=== PATIENT | female | born 1960 | race Caucasian/White ===

== ENCOUNTER 2019-02-08 14:43 | Emergency (ER) | payer BC, OTHER ==
[2019-02-08] MEDS ORDERED: Lidocaine 1% 10 ML MDV INJECT ONE (15:15)
--- NOTE | 2019-02-08 15:15 | EDM.PDOC ---
ED HPI GENERAL MEDICAL PROBLEM - General Chief Complaint: Laceration Stated Complaint: LACERATION TO LFT THUMB Time Seen by Provider: 02/08/19 15:15 Source of Information: Reports: Patient History Limitations: Reports: No Limitations - History of Present Illness INITIAL COMMENTS - FREE TEXT/NARRATIVE: HISTORY AND PHYSICAL: History of present illness: Patient is a 59-year-old female presents to the ED with complaint of laceration to her left hand. She states she cut her hand while cutting a ham this afternoon. She is not UTD on tetanus. Review of systems: As per history of present illness and below otherwise all systems reviewed and negative. Past medical history: As per history of present illness and as reviewed below otherwise noncontributory. Surgical history: As per history of present illness and as reviewed below otherwise noncontributory. Social history: No reported history of drug or alcohol abuse. Family history: As per history of present illness and as reviewed below otherwise noncontributory. Physical exam: General: Patient sitting comfortably in no acute distress and nontoxic appearing HEENT: Atraumatic, normocephalic, pupils reactive, negative for conjunctival pallor or scleral icterus, mucous membranes moist, throat clear, neck supple, nontender, trachea midline. No meningeal signs. Lungs: Clear to auscultation, breath sounds equal bilaterally, chest nontender. Heart: S1S2, regular, negative for clicks, rubs, or overt murmur. Abdomen: Soft, nondistended, nontender. Negative for masses or hepatosplenomegaly. Negative for costovertebral tenderness. No rigidity, rebound , guarding. Pelvis: Stable nontender. Genitourinary: Deferred. Rectal: Deferred. Extremities: 1cm laceration to the web space between the 4th and 5th left digits and a 2cm laceration to the distal left thumb. negative for cords or calf pain. Neurovascular unremarkable. Neuro: Awake, alert, oriented. Cranial nerves II through XII unremarkable. Cerebellum unremarkable. Motor and sensory unremarkable throughout. Exam nonfocal. Notes: Diagnostics: none Therapeutics: tdap laceration repair - see procedure note Prescriptions: Impression: Laceration Definitive disposition and diagnosis as appropriate pending reevaluation and review of above. Left Finger-Thumb Pain Score (Numeric/FACES): 2 - Related Data Allergies Allergy/AdvReac Type Severity Reaction Status Date / Time latex Allergy Rash Verified 02/08/19 15:01 Home Meds: Home Meds Aspirin [Adult Low Dose Aspirin EC] 81 mg PO DAILY 07/22/14 [History] Levothyroxine [Synthroid] 88 mcg PO DAILY 07/22/14 [History] Losartan/Hydrochlorothiazide [Losartan-HCTZ 50-12.5 MG] 50 mg PO DAILY 07/22/14 [History] Metoprolol Succinate [Toprol XL] 25 mg PO DAILY 07/22/14 [History] Cholecalciferol (Vitamin D3) [Vitamin D3] 5,000 units PO DAILY 09/15/14 [History ] DULoxetine [Cymbalta] 60 mg PO DAILY 09/15/14 [History] Gabapentin [Neurontin] 100 mg PO BID 09/15/14 [History] Loratadine [Claritin] 10 mg PO DAILY 09/15/14 [History] Vitamin B Complex 1 cap PO DAILY 09/15/14 [History] Past Medical History Cardiovascular History: Reports: Hypertension - Infectious Disease History Infectious Disease History: Reports: None - Past Surgical History HEENT Surgical History: Reports: Adenoidectomy, Tonsillectomy Female Surgical History: Reports: Hysterectomy Social & Family History - Family History Family Medical History: Noncontributory - Tobacco Use Smoking Status *Q: Never Smoker - Caffeine Use Caffeine Use: Reports: Coffee - Recreational Drug Use Recreational Drug Use: No ED ROS GENERAL - Review of Systems Review Of Systems: Comprehensive ROS is negative, except as noted in HPI. ED EXAM, SKIN/RASH Exam: See Below (see dictation) ED SKIN PROCEDURES - Laceration/Wound Repair Left Hand Appearance: Superficial, Subcutaneous, Linear, Clean Distal NVT: Neuro & Vascular Intact, No Tendon Injury Anesthetic Type: Local Local Anesthesia - Lidocaine (Xylocaine): 1% Plain Local Anesthetic Volume: 5cc Skin Prep: Saline Saline Irrigation (cc's): 250 Exploration/Debridement/Repair: Wound Explored, In a Bloodless Field, Explored to Base, No Foreign Material Found Closed with: Sutures Lac/Wound length In cm: 2 Suture Size: 5-0 # of Sutures: 8 Suture Type: Nylon, Interrupted, Simple Course - Vital Signs Last Recorded V/S: Last Vital Signs Temp 97.0 F 02/08/19 15:03 Pulse 81 02/08/19 15:03 Resp 16 02/08/19 15:03 BP Pulse Ox 91 L 02/08/19 15:03 - Orders/Labs/Meds Meds: Medications Discontinued Medications Generic Name Dose Route Start Last Admin Trade Name Aliya PALMA Reason Stop Dose Admin Lidocaine HCl 5 ml 02/08/19 15:15 02/08/19 15:25 Xylocaine-Mpf 1% INJECT 02/08/19 15:16 5 ml ONETIME ONE Administration Lidocaine HCl 10 ml 02/08/19 15:15 02/08/19 15:25 Xylocaine 1% INJECT 02/08/19 15:16 Not Given ONETIME ONE Departure - Departure Time of Disposition: 15:48 Disposition: Home, Self-Care 01 Condition: Good Clinical Impression: Laceration of left hand - Discharge Information Referrals: Josiane Avilez DO [Primary Care Provider] - Forms: ED Department Discharge Additional Instructions: The following information is given to patients seen in the emergency department who are being discharged to home. This information is to outline your options for follow-up care. We provide all patients seen in our emergency department with a follow-up referral. The need for follow-up, as well as the timing and circumstances, are variable depending upon the specifics of your emergency department visit. If you don't have a primary care physician on staff, we will provide you with a referral. We always advise you to contact your personal physician following an emergency department visit to inform them of the circumstance of the visit and for follow-up with them and/or the need for any referrals to a consulting specialist. The emergency department will also refer you to a specialist when appropriate. This referral assures that you have the opportunity for follow-up care with a specialist. All of these measure are taken in an effort to provide you with optimal care, which includes your follow-up. Under all circumstances we always encourage you to contact your private physician who remains a resource for coordinating your care. When calling for follow-up care, please make the office aware that this follow-up is from your recent emergency room visit. If for any reason you are refused follow-up, please contact the [facility] Emergency Department at and asked to speak to the emergency department charge nurse. [facility] [address] [place] [id number] [facility] [address] [place] [id number] Keep the area clean and dry as instructed Follow up for suture removal in 7 days Return to ED As needed as discussed Sepsis Event Note - Evaluation Sepsis Screening Result: No Definite Risk - Focused Exam Vital Signs: Vital Signs Temp Pulse Resp Pulse Ox 02/08/19 15:03 97.0 F 81 16 91 L Date Exam was Performed: 02/08/19 Time Exam was Performed: 15:25
[2019-02-08 16:00] VITALS: BP 144/78; PULSE 82
== END 2019-02-08 16:01 | disposition home or self-care (01) ==
LOC: MW.ED 14:43
DX: S61.412A Laceration without foreign body of left hand, initial encounter (principal); Z79.82 Long term (current) use of aspirin; I10 Essential (primary) hypertension; Z79.899 Other long term (current) drug therapy; Z91.040 Latex allergy status; W26.8XXA Contact with other sharp object(s), not elsewhere classified, initial encounter
CPT/HCPCS: 12001; 99282; J2001

== ENCOUNTER 2022-12-18 14:54 | Emergency (ER) | payer OTHER ==
[2022-12-18] MEDS ORDERED: Tenecteplase 50 MG Kit ONE (15:23)
[2022-12-18] MEDS ORDERED: Tenecteplase 50 MG Kit IV STA (15:32)
[2022-12-18 15:46] LABS: BASOPHILS ABSOLUTE AUTO 0.07 K/uL (0.00-0.20); BASOPHILS PERCENT AUTO 0.7 % (0.0-1.0); EOSINOPHILS ABSOLUTE AUTO 0.62 K/uL (0.00-0.45); EOSINOPHILS PERCENT AUTO 6.6 % (0.0-6.0); HEMATOCRIT 41.5 % (37.0-47.0); HEMOGLOBIN 13.7 g/dL (12.0-16.0); IMMATURE GRAN ABSOLUTE AUTO 0.03 K/uL (0.00-0.05); IMMATURE GRAN PERCENT AUTO 0.3 % (0.0-0.4); LYMPHOCYTES ABSOLUTE AUTO 2.72 K/uL (1.00-4.80); LYMPHOCYTES PERCENT AUTO 28.9 % (24.0-44.0); MEAN CORPUSCULAR HEMOGLOBIN 28.2 pg (28.0-32.0); MEAN CORPUSCULAR VOLUME 85.6 fL (83.0-99.0); MONOCYTES ABSOLUTE AUTO 0.62 K/uL (0.00-0.80); MONOCYTES PERCENT AUTO 6.6 % (0.0-8.0); NEUTROPHILS ABSOLUTE AUTO 5.36 K/uL (1.80-7.70); NEUTROPHILS PERCENT AUTO 56.9 % (41.0-71.0); PLATELET COUNT,PLT 256 K/uL (150-400); RED BLOOD CELL COUNT 4.85 M/uL (4.10-5.30); WHITE BLOOD CELL COUNT,WBC 9.42 K/uL (3.9-11.3)
[2022-12-18 15:55] LABS: APPEARANCE,URINE CLEAR; BILIRUBIN,URINE NEGATIVE (NEGATIVE); COLOR,URINE YELLOW; GLUCOSE,URINE NEGATIVE (NEGATIVE); KETONES,URINE NEGATIVE (NEGATIVE); LEUKOCYTE ESTERASE,URINE NEGATIVE (NEGATIVE); NITRITE,URINE NEGATIVE (NEGATIVE); OCCULT BLOOD,URINE NEGATIVE (NEGATIVE); PROTEIN,URINE NEGATIVE (NEGATIVE); UROBILINOGEN,URINE 0.2 EU/dL (<2.0)
[2022-12-18 16:13] LABS: A/G RATIO 0.9 (0.9-1.6); ALBUMIN 3.5 g/dL (3.4-5.0); BILIRUBIN TOTAL 0.2 mg/dL (0.2-1.0); CALCIUM 8.6 mg/dL (8.5-10.1); CARBON DIOXIDE,CO2 29.9 mmol/L (21.0-32.0); CREATININE 0.9 mg/dL (0.6-1.0); EST CRCL DRUG DOSING (CG) 53.61 mL/min; MAGNESIUM 1.9 mg/dL (1.8-2.4); POTASSIUM,K 3.6 mmol/L (3.5-5.1); PROTEIN TOTAL,TP 7.2 g/dL (6.4-8.2)
[2022-12-18 16:20] LABS: INR 0.97 (0.86-1.11)
[2022-12-18] MEDS ORDERED: LORazepam 2 MG/ML SDV IVPUSH ONE (16:30)
[2022-12-18 17:57] VITALS: BP 132/70; PULSE 95
== END 2022-12-18 17:40 ==
LOC: MW.ED 14:54
DX: I67.9 Cerebrovascular disease, unspecified (principal); I10 Essential (primary) hypertension; E03.9 Hypothyroidism, unspecified; Z91.040 Latex allergy status; Z79.899 Other long term (current) drug therapy; Z79.82 Long term (current) use of aspirin
CPT/HCPCS: 36415; 51702; 70450; 70496; 70498; 80053; 81003; 82947; 83735; 84484; 85025; 85610; 85730; 92977; 96374; 99285; J2060; J3101; 93010

== ENCOUNTER 2023-06-21 16:01 | Observation (INO) | payer OTHER ==
[2023-06-21 16:24] LABS: BASOPHILS ABSOLUTE AUTO 0.06 K/uL (0.00-0.20); BASOPHILS PERCENT AUTO 0.5 % (0.0-1.0); EOSINOPHILS ABSOLUTE AUTO 0.51 K/uL (0.00-0.45); EOSINOPHILS PERCENT AUTO 4.6 % (0.0-6.0); HEMATOCRIT 40.9 % (37.0-47.0); HEMOGLOBIN 13.6 g/dL (12.0-16.0); IMMATURE GRAN ABSOLUTE AUTO 0.03 K/uL (0.00-0.05); IMMATURE GRAN PERCENT AUTO 0.3 % (0.0-0.4); LYMPHOCYTES ABSOLUTE AUTO 2.81 K/uL (1.00-4.80); LYMPHOCYTES PERCENT AUTO 25.4 % (24.0-44.0); MEAN CORPUSCULAR HEMOGLOBIN 29.4 pg (28.0-32.0); MEAN CORPUSCULAR HGB CONC 33.3 g/dL (32.0-36.0); MEAN CORPUSCULAR VOLUME 88.5 fL (83.0-99.0); MONOCYTES ABSOLUTE AUTO 0.69 K/uL (0.00-0.80); MONOCYTES PERCENT AUTO 6.2 % (0.0-8.0); NEUTROPHILS ABSOLUTE AUTO 6.97 K/uL (1.80-7.70); PLATELET COUNT,PLT 302 K/uL (150-400); RED BLOOD CELL COUNT 4.62 M/uL (4.10-5.30); WHITE BLOOD CELL COUNT,WBC 11.07 K/uL (3.9-11.3)
[2023-06-21] MEDS: Iopamidol 755 MG/ML 500 ML Multipack Bottle IVPUSH STA (16:40)
[2023-06-21 16:43] LABS: INR 1.01 (0.86-1.11); PTT,PARTIAL THROMBOPLSTIN TIME 27.2 SEC (23.9-30.7)
[2023-06-21] MEDS: Sodium Chloride 0.9% 500 ML IV SCH (16:47)
[2023-06-21] MEDS: Sodium Chloride 0.9% 2.5 ML Syringe FLUSH PRN (16:47)
[2023-06-21] MEDS: Sodium Chloride 0.9% 10 ML Syringe FLUSH PRN (16:47)
[2023-06-21] MEDS: Sodium Chloride 0.9% 20 ML SDV IV PRN (16:48)
[2023-06-21 17:00] LABS: A/G RATIO 0.9 (0.9-1.6); ALBUMIN 3.6 g/dL (3.4-5.0); BILIRUBIN TOTAL 0.3 mg/dL (0.2-1.0); CALCIUM 9.1 mg/dL (8.5-10.1); CARBON DIOXIDE,CO2 30.4 mmol/L (21.0-32.0); EST CRCL DRUG DOSING (CG) 49.72 mL/min; POTASSIUM,K 3.5 mmol/L (3.5-5.1); PROTEIN TOTAL,TP 7.6 g/dL (6.4-8.2)
[2023-06-21] MEDS ORDERED: Magnesium Sulfate/Water 2 GM in Premix Bag 1 BAG IV ONE (17:16)
[2023-06-21] MEDS: Magnesium Sulfate/Water 2 GM in Premix Bag 1 BAG IV ONE (17:20)
[2023-06-21] MEDS: Metoclopramide 10 MG/2 ML SDV IVPUSH ONE ×2 (17:30→17:37)
[2023-06-21] MEDS: Ketorolac 30 MG/ML SDV IVPUSH ONE (17:30)
[2023-06-21] MEDS ORDERED: Ketorolac 30 MG/ML SDV IV PRN (18:15)
[2023-06-21] MEDS ORDERED: Ondansetron 4 MG Tab.DIS PO PRN (18:15)
[2023-06-21] MEDS ORDERED: LORazepam 2 MG/ML SDV IVPUSH ONE (19:08)
[2023-06-21] MEDS: Pantoprazole 40 MG in Sodium Chloride 0.9% 10 ML IVPUSH SCH ×2 (19:49→19:50)
[2023-06-21] MEDS: Acetaminophen 325 MG Tab PO PRN (21:05)
[2023-06-21] MEDS: Metoprolol Succinate 25 MG Tab.ER PO SCH (21:06)
[2023-06-21] MEDS: Cetirizine 10 MG Tab PO SCH (21:06)
[2023-06-21] MEDS: ARIPiprazole 10 MG Tab PO SCH (21:07)
[2023-06-21] MEDS: atorvaSTATin 40 MG Tab PO SCH (21:08)
[2023-06-21] MEDS: Hydrochlorothiazide 12.5 MG Cap PO SCH (21:08)
[2023-06-21] MEDS: Gabapentin 300 MG Cap PO SCH (21:14)
[2023-06-21] MEDS: DULoxetine 30 MG Cap PO SCH ×2 (22:32→23:37)
[2023-06-22 06:19] LABS: BASOPHILS ABSOLUTE AUTO 0.05 K/uL (0.00-0.20); BASOPHILS PERCENT AUTO 0.7 % (0.0-1.0); EOSINOPHILS ABSOLUTE AUTO 0.47 K/uL (0.00-0.45); EOSINOPHILS PERCENT AUTO 6.6 % (0.0-6.0); HEMATOCRIT 36.8 % (37.0-47.0); HEMOGLOBIN 12.2 g/dL (12.0-16.0); IMMATURE GRAN ABSOLUTE AUTO 0.02 K/uL (0.00-0.05); IMMATURE GRAN PERCENT AUTO 0.3 % (0.0-0.4); LYMPHOCYTES ABSOLUTE AUTO 2.27 K/uL (1.00-4.80); LYMPHOCYTES PERCENT AUTO 32.1 % (24.0-44.0); MEAN CORPUSCULAR HEMOGLOBIN 28.9 pg (28.0-32.0); MEAN CORPUSCULAR HGB CONC 33.2 g/dL (32.0-36.0); MEAN CORPUSCULAR VOLUME 87.2 fL (83.0-99.0); MEAN PLATELET VOLUME 8.9 fL (9.4-12.3); MONOCYTES ABSOLUTE AUTO 0.39 K/uL (0.00-0.80); MONOCYTES PERCENT AUTO 5.5 % (0.0-8.0); NEUTROPHILS ABSOLUTE AUTO 3.88 K/uL (1.80-7.70); NEUTROPHILS PERCENT AUTO 54.8 % (41.0-71.0); PLATELET COUNT,PLT 236 K/uL (150-400); RED BLOOD CELL COUNT 4.22 M/uL (4.10-5.30); WHITE BLOOD CELL COUNT,WBC 7.08 K/uL (3.9-11.3)
[2023-06-22 06:34] LABS: HEMOGLOBIN A1C 6.4 %
[2023-06-22] MEDS: Levothyroxine 88 MCG Tab PO SCH (06:35)
[2023-06-22 06:42] LABS: A/G RATIO 0.9 (0.9-1.6); BILIRUBIN TOTAL 0.4 mg/dL (0.2-1.0); CALCIUM 8.5 mg/dL (8.5-10.1); CARBON DIOXIDE,CO2 28.6 mmol/L (21.0-32.0); CREATININE 0.9 mg/dL (0.6-1.0); EST CRCL DRUG DOSING (CG) 52.93 mL/min; POTASSIUM,K 3.6 mmol/L (3.5-5.1); PROTEIN TOTAL,TP 6.5 g/dL (6.4-8.2)
[2023-06-22 07:23] LABS: TSH ULTRASENSITIVE 0.51 uIU/mL (0.36-3.74)
[2023-06-22] MEDS ORDERED: Non-Formulary Medication 1 Each (Hydrochlorothiazide [Hydrochlorothiazide] 12.5 MG Tablet) PO SCH (09:00)
[2023-06-22] MEDS ORDERED: DULoxetine 30 MG Cap PO SCH ×2 (09:00→21:00)
[2023-06-22] MEDS ORDERED: Metoprolol Succinate 25 MG Tab.ER PO SCH (09:00)
[2023-06-22] MEDS ORDERED: ARIPIPRAZOLE 5 MG PO SCH (09:00)
[2023-06-22] MEDS: Losartan 50 MG Tab PO SCH (09:30)
[2023-06-22] MEDS: Clopidogrel 75 MG Tab PO SCH (09:30)
[2023-06-22] MEDS: Gabapentin 300 MG Cap PO SCH (10:44)
[2023-06-22] MEDS: LORazepam 2 MG/ML SDV IVPUSH ONE (12:13)
[2023-06-22 12:25] VITALS: BP 116/75; PULSE 69
[2023-06-22] MEDS: Gadobenate Dimeglumine 529 MG/ML 20 ML SDV IVPUSH STA (14:41)
[2023-06-22] MEDS ORDERED: Gabapentin 100 MG Cap PO SCH (21:00)
== END 2023-06-22 15:50 | disposition home or self-care (01) ==
LOC: MW.ED 16:01 → MW.MS 18:19
PROVIDERS: ADMIT Family Medicine; ATTEND Family Medicine
DX: I63.9 Cerebral infarction, unspecified (principal); E03.9 Hypothyroidism, unspecified; G43.909 Migraine, unspecified, not intractable, without status migrainosus; I10 Essential (primary) hypertension; K21.9 Gastro-esophageal reflux disease without esophagitis; R20.0 Anesthesia of skin; F41.9 Anxiety disorder, unspecified; F32.A Depression, unspecified; Z79.890 Hormone replacement therapy; Z98.890 Other specified postprocedural states; Z79.899 Other long term (current) drug therapy; Z91.040 Latex allergy status; Z91.048 Other nonmedicinal substance allergy status
CPT/HCPCS: 36415; 70450; 70496; 70498; 70544; 70549; 70553; 71045; 80053; 80061; 82607; 82947; 83036; 84443; 84484; 85025; 85610; 85730; 93005; 93306; 96374; 96375; 96376; 97161; 97165; 99285; A9270; A9577; C9113; G0378; J1885; J2060; J2765; J3475; J3490; J7040; Q9967; 93010; 99284